=== PATIENT | female | born 1955 | race Caucasian/White ===

== ENCOUNTER 2019-04-17 03:57 | Emergency (ER) | payer OTHER ==
[~2019-04-17] VITALS: Ht 162.6 cm; Wt 53.5 kg
--- NOTE | 2019-04-17 04:19 | PHYS DOC ---
Past History Past Medical History: Anxiety, Arthritis, Depression Additional Past Medical Histor: hiatal hernia (SALO TOLEDO DO) Past Surgical History: Cholecystectomy (SALO TOLEDO DO) Additional Smoking Information: 1 Pk Qday Alcohol Use: None Drug Use: None (SALO TOLEDO DO) Adult General Chief Complaint Chief Complaint: SHORTNESS OF BREATH HPI HPI Patient is a 63-year-old smoker presents with several-day history of progressive shortness of breath and upper respiratory type symptoms. She states she's been coughing and congested. Last night she states her symptoms worsen to the point where she could barely drink water because she was so short of breath. She denies any fever chills or sweats. She does state that her grandkids have been sick. She does continue to smoke. She denies any hemoptysis.[] (SALO TOLEDO DO) Review of Systems Review of Systems Constitutional: Denies fever or chills [] Eyes: Denies change in visual acuity, redness, or eye pain [] HENT: Denies nasal congestion or sore throat [] Respiratory: Per history of present illness[] Cardiovascular: No additional information not addressed in HPI [] GI: Denies abdominal pain, nausea, vomiting, bloody stools or diarrhea [] : Denies dysuria or hematuria [] Musculoskeletal: Denies back pain or joint pain [] Integument: Denies rash or skin lesions [] Neurologic: Denies headache, focal weakness or sensory changes [] Endocrine: Denies polyuria or polydipsia [] All other systems were reviewed and found to be within normal limits, except as documented in this note. (SALO TOLEDO DO) Physical Exam Physical Exam Constitutional: Well developed, well nourished, appears acutely ill, smells of smoke[] HENT: Normocephalic, atraumatic, bilateral external ears normal, oropharynx moist, no oral exudates, nose normal. [] Eyes: PERRLA, EOMI, conjunctiva normal, no discharge. [] Neck: Normal range of motion, no tenderness, supple, no stridor. [] Cardiovascular:Heart rate regular rhythm, no murmur [] Lungs & Thorax: Scattered wheezes throughout both lungs[] Abdomen: Bowel sounds normal, soft, no tenderness, no masses, no pulsatile masses. [] Skin: Warm, dry, no erythema, no rash. [] Back: No tenderness, no CVA tenderness. [] Extremities: No tenderness, no cyanosis, no clubbing, ROM intact, no edema. [] Neurologic: Alert and oriented X 3, normal motor function, normal sensory function, no focal deficits noted. [] Psychologic: Anxious. [] (SALO TOLEDO DO) Current Patient Data Vital Signs Vital Signs Date Time Temp Pulse Resp B/P (MAP) Pulse Ox O2 Delivery O2 Flow Rate FiO2 04/17/19 04:10 97.9 82 24 95 Room Air (SALO TOLEDO DO) EKG EKG EKG: Normal sinus rhythm rate of [address]-T changes[] (SALO TOLEDO DO) Radiology/Procedures Radiology/Procedures [] (SALO TOLEDO DO) Radiology/[place] [address] IMAGING REPORT Signed PATIENT: CLEMENCIA SCHMIDTOUNT: [id number] : 1955 LOCATION: ER AGE: 63 SEX: F EXAM STATUS: REG ER ORD. PHYSICIAN: SALO TOLEDO DO REASON: SOA, cough, congestion PROCEDURE: CHEST AP ONLY AP chest x-ray HISTORY: Shortness of breath and cough. FINDINGS: Heart size normal. Mediastinal silhouette is normal. No pneumothorax, pulmonary opacities or pleural effusions. The bones are unremarkable. IMPRESSION: No acute process. Electronically signed by: Lucy Rock MD (04/17/2019 5:00 AM) [facility] DICTATED AND SIGNED BY: LUCY ROCK MD DATE: 04/17/19 0500 CC: NON,STAFF; SALO TOLEDO DO ~ (RAJ MILLER DO) Course & Med Decision Making Course & Med Decision Making Pertinent Labs and Imaging studies reviewed. (See chart for details) [] (SALO TOLEDO DO) Course & Med Decision Making Patient is a 63-year-old female who presented to ER today with trouble breathing and cough. Chest x-ray did not show pneumonia. Her lab work was normal as well. Patient was given DuoNeb treatment and IV some minimal in the ER, she felt much better. Patient continues to smoke, she smokes a pack a day for the last 30 years. She was never been diagnosed COPD, but she definitely has COPD exacerbation. She will be discharged home with albuterol inhaler, prednisone, Z- Navjot. She is advised to stop smoking, follow-up with her family doctor for ou tpatient evaluation. (RAJ MILLER DO) Dragon Disclaimer Dragon Disclaimer This electronic medical record was generated, in whole or in part, using a voice recognition dictation system. (SALO TOLEDO DO) Departure Departure: Impression: Primary Impression: COPD exacerbation Disposition: HOME, SELF-CARE Condition: IMPROVED Referrals: NON,STAFF (PCP) PLEASE FOLLLOW UP WITH YOUR DOCTOR IN 2 DAYS FOR REEVALUATION. Patient Instructions: Chronic Obstructive Pulmonary Disease Exacerbation Scripts Azithromycin (ZITHROMAX) 250 Mg Tablet 1 PKG PO UD for BRONCHITIS, #6 TAB Prov: RAJ MILLER DO 04/17/19 Albuterol Sulfate (PROAIR HFA INHALER) 8.5 Gm Hfa.aer.ad 2 PUFF IH PRN Q4-6HRS PRN for wheezing for 21 Days, #1 INHALER 0 Refills Prov: RAJ MILLER DO 04/17/19 Prednisone (PREDNISONE) 20 Mg Tablet 2 TAB PO DAILY for COPD for 7 Days, #14 TAB Prov: RAJ MILLER DO 04/17/19 SALO TOLEDO DO Apr 17, 2019 04:19 RAJ MILLER DO Apr 17, 2019 05:55
[2019-04-17] MEDS ORDERED: IPRATROPIUM BROMIDE 0.5 MG/2.5 ML NEBU. ONE (04:27)
[2019-04-17] MEDS ORDERED: IPRATRPIUM/ALBUTEROL 0.5/2.5MG 3 ML NEBU. NEB ONE ×2 (04:30→05:15)
[2019-04-17] MEDS ORDERED: methylPREDNISolone SOD SUCC PF 125 MG/2 ML VIAL. IV ONE (04:30)
[2019-04-17 04:45] LABS: BASO # 0.2 x10^3/uL (0.0-0.2); BASO % 2 % (0-3); EOS % 1 % (0-3); LYMPH # 3.4 x10^3/uL (1.0-4.8); LYMPH % 41 % (24-48); MEAN CORPUSCULAR HEMOGLOBIN 33 pg (25-35); MEAN CORPUSCULAR HGB CONC 35 g/dL (31-37); MEAN CORPUSCULAR VOLUME 95 fL (79-100); MONO # 0.8 x10^3/uL (0.0-1.1); MONO % 10 % (0-9); NEUT % 47 % (31-73); PLATELET COUNT 296 x10^3/uL (140-400); RED CELL DISTRIBUTION WIDTH 12.7 % (11.5-14.5); WHITE BLOOD COUNT 8.5 x10^3/uL (4.0-11.0)
[2019-04-17 04:52] LABS: CALCIUM 8.6 mg/dL (8.5-10.1); CREATININE 0.6 mg/dL (0.6-1.0); GFR 100.3; POTASSIUM 3.9 mmol/L (3.5-5.1)
--- NOTE | 2019-04-17 05:03 | RAD ---
AP chest x-ray HISTORY: Shortness of breath and cough. FINDINGS: Heart size normal. Mediastinal silhouette is normal. No pneumothorax, pulmonary opacities or pleural effusions. The bones are unremarkable. IMPRESSION: No acute process. Electronically signed by: Chino Rock MD (04/17/2019 5:00 AM) [facility]
[2019-04-17 05:08] LABS: ALBUMIN 3.7 g/dL (3.4-5.0); ALBUMIN/GLOBULIN RATIO 1.1 (1.0-1.7); TOTAL BILIRUBIN 0.3 mg/dL (0.2-1.0); TOTAL PROTEIN 7.1 g/dL (6.4-8.2)
[2019-04-17 05:17] LABS: INFLUENZA A PATIENT NEGATIVE (NEGATIVE); INFLUENZA B PATIENT NEGATIVE (NEGATIVE)
[2019-04-17] MEDS ORDERED: IV NORMAL SALINE 1,000ML 1,000 ML IV ONE (05:45)
[2019-04-17] MEDS ORDERED: AZIT250T PO (05:54)
[2019-04-17] MEDS ORDERED: PRED20TA PO (05:54)
[2019-04-17] MEDS ORDERED: ALBU2.5V8 IH (05:54)
[2019-04-17 06:00] VITALS: BP 110/48
--- NOTE | 2019-04-17 06:05 | EKG ---
[address] [address] Test Date: 2019-04-17 Test Time: 04:25:31 Pat Name: CLEMENCIA SCHMIDT Department: Room: Gender: F [employer]: : 1955 Requested By: SALO TOLEDO Order Number: [id number] Reading MD: Measurements Intervals [place] Rate: 81 P: 66 MA: 156 QRS: 67 QRSD: 62 T: 75 QT: 356 QTc: 414 Interpretive Statements SINUS RHYTHM QRS(T) CONTOUR ABNORMALITY CONSIDER ANTEROLATERAL MYOCARDIAL DAMAGE POSSIBLY ABNORMAL ECG RI6.01 No previous ECG available for comparison
== END 2019-04-17 06:05 | disposition home or self-care (01) ==
LOC: ER 03:57
DX: J44.1 Chronic obstructive pulmonary disease with (acute) exacerbation (principal); F41.9 Anxiety disorder, unspecified; M19.90 Unspecified osteoarthritis, unspecified site; F32.9 Major depressive disorder, single episode, unspecified; F17.200 Nicotine dependence, unspecified, uncomplicated
CPT/HCPCS: 36415; 71045; 80053; 83880; 84484; 85025; 87804; 93005; 94640; 96374; 99285; J2930; J7620; J7030